=== PATIENT | male | born 1945 | race Caucasian/White ===

== ENCOUNTER → 2024-01-24 | Outpatient (CLI) | payer MEDICARE ==
--- NOTE | 2024-01-24 20:05 | MR ---
EXAMINATION TYPE: MR Prostate wo/w con DATE OF EXAM: 01/24/2024 9:53 AM COMPARISON: None. CLINICAL INDICATION: Male, 78 years old with history of C61 prostate ca; TECHNIQUE: Multi-planar, multi-sequence imaging of the pelvis is performed prior to and following the uncomplicated administration of bolus intravenous gadolinium. IV Contrast: 7 mL Gadobutrol Interpretive Criteria: PI-RADS v2.1 SERUM PSA: - = 15.220 -- = 11.870 SURGICAL PATHOLOGY: Positive biopsy 12/23/2023 involving the bilateral prostate gland. FINDINGS: Prostatic dimensions: 4.6 x 4.4 x 4.4 cm. "Bullet" Volume:58.29 (PSA density=0.26 ng/mL/mL) CENTRAL GLAND (Central and Transition Zones/CZ+TZ): Multiple bilateral, heterogenous appearing hypertrophic stromal nodules, without suspicious lesion. M edian lobe hypertrophy with protrusion into the base of the bladder. Some ill-defined high DWI signa l/ADC signal seen single slices without correlate on other sequences. (PI-RADS 2) PERIPHERAL ZONE (PZ): Bilateral linear, indistinct wedgelike areas of low ADC, and low T2 signal, No evidence of masslike a bnormality, or localized perfusional hypervascularity, to further suggest a focus of clinically signi ficant prostate cancer. Intrinsic high T1 signal within the peripheral gland predominantly in the rig ht and to lesser extent the left. Findings likely sequela of prior intervention. (PI-RADS 2) Some ill-defined high DWI signal/ADC signal seen single slices without correlate on other sequences. SEMINAL VESICLES (SV): Symmetric and unremarkable. PERIPROSTATIC TISSUES: Unremarkable. LYMPH NODES: No enlarged pelvic lymph node. REMAINING PELVIS: Bladder wall is within normal limits given distention. No abnormal free or organized intrapelvic fluid collection. No pathologic bowel dilation or mural thickening. No hernia visualized OSSEOUS STRUCTURES: No suspicious osseous abnormality. IMPRESSION: 1. No specific features for high-risk prostate cancer this patient with somewhat diffuse positive bio psy. There are sequela of prior biopsy noted present. Some ill-defined high DWI signal/ADC signal see n single slices without correlate on other sequences. Maximum PI-RADS score: 2. 2. Moderate BPH, estimated gland volume 58.29 mL. 3. No suspicious osseous lesion. No lymphadenopathy. No evidence of prostate adenocarcinoma involving the periprostatic tissues. [facility], , 01/24/2024 8:03 PM
== END | disposition home or self-care (01) ==
LOC: RADMRIMAIN 08:08
PROVIDERS: ATTEND Urology
DX: C61 Malignant neoplasm of prostate (principal); N40.0 Benign prostatic hyperplasia without lower urinary tract symptoms
CPT/HCPCS: 72197; A9585

== ENCOUNTER → 2024-01-27 | Outpatient (CLI) | payer MEDICARE ==
[2024-01-27 15:19] LABS: BUN/Creat Ratio 13.33 Ratio (12.00-20.00); Calcium 9.4 mg/dL (8.7-10.3); Carbon Dioxide 25.9 mmol/L (21.6-31.8); Chloride 99 mmol/L (96-109); Glucose 96 mg/dL (70-110); Potassium 4.7 mmol/L (3.5-5.5); Sodium 137 mmol/L (135-145)
[2024-01-27 15:28] LABS: HCT 44.9 % (39.6-50.0); HGB 14.7 g/dL (13.0-17.0); MCH 28.5 pg (27.0-32.0); MCHC 32.7 g/dL (32.0-37.0); NRBC Per 100 WBC 0 X 10*3/uL (0.00-0.01); Platelet Count 287 X 10*3/uL (140-440); RBC 5.16 X 10*6/uL (4.40-5.60); RDW 12.9 % (11.5-14.5); WBC 9.25 X 10*3/uL (4.50-10.00)
== END | disposition home or self-care (01) ==
LOC: LABWHC1 12:26
PROVIDERS: ATTEND Urology
DX: C61 Malignant neoplasm of prostate (principal)
CPT/HCPCS: 36415; 80048; 85027

== ENCOUNTER 2024-01-31 13:05 | Day surgery (SDC) | payer MEDICARE ==
--- NOTE | 2024-01-31 12:31 | P.HPIHPCON ---
History of Present Illness H&P Date: 01/31/24 Chief Complaint: Prostate cancer This is a 78-year-old male with history of [place] 7(4+3) prostate cancer he elected to proceed with radiation therapy. Option for SpaceOAR gel placement was discussed with him, risk of bleeding, infection, rectal perforation was discussed. Discussed with him the rationale of doing this was to reduce the rectal toxicity, discussed potential of developing toxicity even with SpaceOAR gel placement Consent for Procedure: I have explained the operation/procedure to the patient, including the risks, benefits, side effects, alternative therapies (including not receiving the proposed treatment or service), the likelihood of the patient achieving his/her goals, and potential recuperation problems for the procedure/sedation/analgesia, as well as any blood products, if indicated. I also explained to the patient the risks, benefits and side effects of the alternatives, as well as the risks related to not receiving the proposed procedure, care, treatment, or services. Past Medical History Past Medical History: Cancer Additional Past Medical History / Comment(s): hx. crush injury Rt. heel, hx. skin cancer bilat. shoulders and under Lt. eye, prostate cancer History of Any Multi-Drug Resistant Organisms: None Reported Past Surgical History: Orthopedic Surgery Additional Past Surgical History / Comment(s): Rt. heel repair, Bilat. CTR, Bilat. cataracts, skin cancer excised Bilat. shoulders & under Lt. eye Past Anesthesia/Blood Transfusion Reactions: No Reported Reaction Smoking Status: Never smoker Medications and Allergies Home Medications Medication Instructions Recorded Confirmed Type Bee Pollen 550 mg PO DAILY 01/27/24 01/27/24 History [place]-3/Dha/Epa/Fish Oil [Fish Oil 1 tab PO DAILY 01/27/24 01/27/24 History 1,000 mg Softgel] Allergies Allergy/AdvReac Type Severity Reaction Status Date / Time No Known Allergies Allergy Verified 01/27/24 15:43 Surgical - Exam - General no distress, no pain - Eyes normal ocular movement, no pale - ENT normal nares, normal mucosa - Respiratory normal expansion, normal respiratory effort - Abdomen Abdomen: soft, non tender Assessment and Plan Assessment: OR for SpaceOAR gel placement
[2024-01-31 14:00] VITALS: TEMP 98.1
[2024-01-31] MEDS: IV FLUID CONTINUATION 1,000 ML IV ONE (14:09)
[2024-01-31] MEDS: LACTATED RINGERS 1,000 ML IV SCH (14:10)
[2024-01-31 14:19] LABS: Basophils # (A) 0.1 k/uL (0-0.2); Basophils % (A) 1 %; Eosinophils # (A) 0.3 k/uL (0-0.7); Eosinophils % (A) 3 %; HCT 48.1 % (39.0-53.0); HGB 15.7 gm/dL (13.0-17.5); Lymphocytes % (A) 36 %; MCH 28.6 pg (25.0-35.0); MCHC 32.7 g/dL (31.0-37.0); MCV 87.6 fL (80.0-100.0); Mean Platelet Volume 7.1; Monocytes # (A) 0.8 k/uL (0-1.0); Monocytes % (A) 8 %; Neutrophils # (A) 5.6 k/uL (1.3-7.7); Neutrophils % (A) 50 %; Platelet Count 320 k/uL (150-450); RBC 5.49 m/uL (4.30-5.90); RDW 12.5 % (11.5-15.5); WBC 11.1 k/uL (3.8-10.6)
[2024-01-31 14:32] LABS: Albumin 4.6 g/dL (3.5-5.0); Bilirubin, Delta 0.1 mg/dL (0.0-0.2); Bilirubin,Unconjugated 0.9 mg/dL (0.0-1.1); Total Protein 7.3 g/dL (6.3-8.2)
[2024-01-31] MEDS: LIDOCAINE 2% (PF) 20 MG/ML 5 ML VIAL SQ ONE ×3 (15:18→15:38)
[2024-01-31] MEDS ORDERED: fentaNYL (PF) 50 MCG/ML 2 ML AMP ONE (15:22)
[2024-01-31] MEDS ORDERED: PROPOFOL 10 MG/ML 20 ML VIAL IV ONE (15:22)
[2024-01-31] MEDS ORDERED: MIDAZOLAM 2 MG/2 ML VIAL ONE (15:22)
--- NOTE | 2024-01-31 15:42 | P.OP ---
Date of Procedure: 01/31/24 Preoperative Diagnosis: Prostate cancer Postoperative Diagnosis: Same Procedure(s) Performed: SpaceOAR gel placement Implants: SpaceOAR gel Anesthesia: MAC Surgeon: Dane Miguel Estimated Blood Loss (ml): 5 Pathology: none sent Condition: stable Disposition: PACU Indications for Procedure: This is a 78-year-old male with history of [place] 7(4+3) prostate cancer he elected to proceed with radiation therapy. Option for SpaceOAR gel placement was discussed with him, risk of bleeding, infection, rectal perforation was discussed. Discussed with him the rationale of doing this was to reduce the rectal toxicity, discussed potential of developing toxicity even with SpaceOAR gel placement Description of Procedure: The patient was taken to the operating room and placed in the dorsolithotomy position, with his legs supported in Kj stirrups. The external genitalia was prepped and draped sterilely. The transrectal ultrasound probe was placed intrarectally. The prostate was imaged. The probe was then placed within the stabilizing stand. A spinal needle was advanced under ultrasonic guidance to the level of the urogenital diaphragm, and lidocaine was used to infiltrate the tissues as the needle was withdrawn. Next, the SpaceOAR needle was passed through the midline of the perineum, 1-2 cm anterior to the anal opening. The needle was slowly advanced under ultrasonic guidance until the needle tip was located within the fat plane between the prostate and rectum, at the level of the mid prostate gland. The needle was confirmed to be midline on the axial imaging. A small amount of normal saline was injected for hydrodissection. Next, the SpaceOAR components were mixed and loaded into the Y connector per protocol. The Y connector was then connected to the needle, and the components were injected slowly over a course of approximately 10 seconds. A total of 10 ml was injected. Significant distance was created between the prostate and rectum, as desired. It should be noted that at no point was there any concern of rectal perforation. The needle was withdrawn, as well as the transrectal ultrasound probe, and the procedure was terminated. The patient tolerated the procedure well and was taken to the recovery room in stable condition
[2024-01-31 16:06] VITALS: BP 129/75; PULSE 62; RESP 16
== END 2024-01-31 16:30 | disposition home or self-care (01) ==
LOC: OR 13:05
PROVIDERS: ATTEND Urology
DX: C61 Malignant neoplasm of prostate (principal); Z85.828 Personal history of other malignant neoplasm of skin; Z91.030 Bee allergy status; Z88.8 Allergy status to other drugs, medicaments and biological substances
CPT/HCPCS: 80076; 85025; 84403; 55874; C1889; J2250; J3010; J2704; J2003

== ENCOUNTER → 2024-02-02 | Outpatient (CLI) | payer MEDICARE ==
--- NOTE | 2024-02-02 17:34 | PE ---
EXAMINATION TYPE: PET CT fusion skull to thigh DATE OF EXAM: 02/02/2024 CLINICAL INDICATION:Male, 78 years old with history of C61 PROSTATE CANCER; TECHNIQUE: Following the intravenous administration of 6.6 mCi of Ga-68 Illuccix (PSMA), whole body images are performed from the skull base to the midthigh. Images are reviewed on the computer in th e coronal, axial, and sagittal planes. Reconstructed rotating images are created on independent work station and reviewed on the computer. A non-contrast CT is performed in conjunction with the PET sc an. CT DLP: 453 mGycm, Automated exposure control for dose reduction was used. COMPARISON: CT None, PET/CT None, MRI: MRI prostate 01/24/2024 FINDINGS: Mediastinal SUV mean is 1.1. Hepatic parenchyma SUV mean is 8.4. SKULL BASE AND NECK: No suspicious radiotracer activity. CHEST, MEDIASTINUM, AND HILAR REGION: No suspicious radiotracer activity. ABDOMEN AND PELVIS: Uptake within the bilateral prostate gland max SUV on the left 10.2 and on the right 5.0. Measurement s are difficult given lack of IV contrast and CT technique. No evidence for metastatic disease. MUSCULOSKELETAL STRUCTURES: No suspicious radiotracer activity. OTHER CT: * Carotid bifurcation atherosclerosis. * Coronary atherosclerosis. * Mild emphysema. * Colonic diverticulosis. * Mild cardiomegaly. * Prostatomegaly. IMPRESSION: Radiotracer uptake within the bilateral prostate gland left greater than right compatible with primar y prostate adenocarcinoma on the left and possibly an additional site on the right. No evidence for m etastatic disease at this time. [facility], , 02/02/2024 5:32 PM
== END | disposition home or self-care (01) ==
LOC: RADPETMAIN 10:01
PROVIDERS: ATTEND Radiology Radiation Oncology
DX: C61 Malignant neoplasm of prostate (principal); I51.7 Cardiomegaly; K57.30 Diverticulosis of large intestine without perforation or abscess without bleeding; J43.9 Emphysema, unspecified; I25.10 Atherosclerotic heart disease of native coronary artery without angina pectoris
CPT/HCPCS: 78815; A9596

== ENCOUNTER → 2024-03-02 | Outpatient (CLI) | payer MEDICARE ==
[2024-03-02 19:17] LABS: BUN/Creat Ratio 11.62 Ratio (12.00-20.00); Blood Urea Nitrogen 9.3 mg/dL (9.0-27.0); Carbon Dioxide 25.6 mmol/L (21.6-31.8); Chloride 94 mmol/L (96-109); Glucose 88 mg/dL (70-110); Potassium 4.7 mmol/L (3.5-5.5); Sodium 130 mmol/L (135-145)
[2024-03-02 19:18] LABS: ALT 24 U/L (10-49); AST 23 U/L (14-35); Albumin 4.2 g/dL (3.8-4.9); Albumin/Globulin Ratio 1.83 Ratio (1.60-3.17); Alkaline Phosphatase 97 U/L (41-126); Globulin 2.3 g/dL (1.6-3.3); Total Bilirubin 0.5 mg/dL (0.3-1.2); Total Protein 6.5 g/dL (6.2-8.2)
[2024-03-02 20:44] LABS: Basophils # (A) 0.06 X 10*3/uL (0.00-0.10); Basophils % (A) 0.7 %; Eosinophils # (A) 0.14 X 10*3/uL (0.04-0.35); Eosinophils % (A) 1.6 %; HGB 13.7 g/dL (13.0-17.0); Lymphocytes # (A) 3.05 X 10*3/uL (0.90-5.00); Lymphocytes % (A) 34.5 %; MCH 27.3 pg (27.0-32.0); MCHC 32.6 g/dL (32.0-37.0); MCV 83.8 FL (80.0-97.0); Mean Platelet Volume 9.7 FL (9.5-12.2); Monocytes # (A) 0.97 X 10*3/uL (0.20-1.00); NRBC Per 100 WBC 0 X 10*3/uL (0.00-0.01); Neutrophils # (A) 4.54 X 10*3/uL (1.80-7.70); Neutrophils % (A) 51.3 %; Platelet Count 260 X 10*3/uL (140-440); RBC 5.01 X 10*6/uL (4.40-5.60); RDW 11.9 % (11.5-14.5); WBC 8.84 X 10*3/uL (4.50-10.00)
== END | disposition home or self-care (01) ==
LOC: LABWHC1 13:49
PROVIDERS: ATTEND Radiology Radiation Oncology
DX: C61 Malignant neoplasm of prostate (principal)
CPT/HCPCS: 36415; 80053; 84153; 84403; 85025

== ENCOUNTER → 2024-05-18 | Outpatient (CLI) | payer MEDICARE ==
[2024-05-18 15:28] LABS: Basophils # (A) 0.02 X 10*3/uL (0.00-0.10); Basophils % (A) 0.3 %; Eosinophils # (A) 0.13 X 10*3/uL (0.04-0.35); Eosinophils % (A) 2.2 %; HCT 38.4 % (39.6-50.0); HGB 12.4 g/dL (13.0-17.0); Lymphocytes # (A) 1.76 X 10*3/uL (0.90-5.00); Lymphocytes % (A) 29.5 %; MCH 27.6 pg (27.0-32.0); MCHC 32.3 g/dL (32.0-37.0); MCV 85.5 FL (80.0-97.0); Mean Platelet Volume 9.7 FL (9.5-12.2); Monocytes # (A) 0.83 X 10*3/uL (0.20-1.00); Monocytes % (A) 13.9 %; NRBC Per 100 WBC 0 X 10*3/uL (0.00-0.01); Neutrophils # (A) 3.22 X 10*3/uL (1.80-7.70); Neutrophils % (A) 53.9 %; Platelet Count 225 X 10*3/uL (140-440); RBC 4.49 X 10*6/uL (4.40-5.60); RDW 13.1 % (11.5-14.5); WBC 5.97 X 10*3/uL (4.50-10.00)
[2024-05-18 15:46] LABS: BUN/Creat Ratio 16.67 Ratio (12.00-20.00); Chloride 99 mmol/L (96-109); Glucose 127 mg/dL (70-110); Potassium 4.5 mmol/L (3.5-5.5); Sodium 136 mmol/L (135-145)
[2024-05-18 15:47] LABS: ALT 17 U/L (10-49); AST 20 U/L (14-35); Albumin 4.1 g/dL (3.8-4.9); Albumin/Globulin Ratio 1.95 Ratio (1.60-3.17); Alkaline Phosphatase 88 U/L (41-126); Calcium 9.1 mg/dL (8.7-10.3); Globulin 2.1 g/dL (1.6-3.3); Total Bilirubin 0.6 mg/dL (0.3-1.2); Total Protein 6.2 g/dL (6.2-8.2)
[2024-05-18 16:12] LABS: Prostate Specific Antigen <0.01 ng/mL (0.000-6.500)
== END | disposition home or self-care (01) ==
LOC: LABWHC1 09:19
PROVIDERS: ATTEND Radiology Radiation Oncology
DX: C61 Malignant neoplasm of prostate (principal)
CPT/HCPCS: 36415; 80053; 84153; 84403; 85025

== ENCOUNTER → 2024-08-17 | Outpatient (CLI) | payer MEDICARE ==
[2024-08-17 15:12] LABS: Basophils # (A) 0.03 X 10*3/uL (0.00-0.10); Basophils % (A) 0.4 %; Eosinophils # (A) 0.24 X 10*3/uL (0.04-0.35); Eosinophils % (A) 3.4 %; HCT 39.7 % (39.6-50.0); HGB 12.5 g/dL (13.0-17.0); Lymphocytes # (A) 2.32 X 10*3/uL (0.90-5.00); Lymphocytes % (A) 33.1 %; MCH 27.3 pg (27.0-32.0); MCHC 31.5 g/dL (32.0-37.0); MCV 86.7 FL (80.0-97.0); Mean Platelet Volume 9.7 FL (9.5-12.2); Monocytes # (A) 0.82 X 10*3/uL (0.20-1.00); Monocytes % (A) 11.7 %; NRBC Per 100 WBC 0 X 10*3/uL (0.00-0.01); Neutrophils # (A) 3.58 X 10*3/uL (1.80-7.70); Neutrophils % (A) 51.1 %; Platelet Count 248 X 10*3/uL (140-440); RBC 4.58 X 10*6/uL (4.40-5.60); RDW 12.5 % (11.5-14.5); WBC 7.01 X 10*3/uL (4.50-10.00)
[2024-08-17 15:47] LABS: ALT 23 U/L (10-49); AST 24 U/L (14-35); Albumin 4.1 g/dL (3.8-4.9); Albumin/Globulin Ratio 1.71 Ratio (1.60-3.17); Alkaline Phosphatase 96 U/L (41-126); BUN/Creat Ratio 12.25 Ratio (12.00-20.00); Blood Urea Nitrogen 9.8 mg/dL (9.0-27.0); Calcium 8.9 mg/dL (8.7-10.3); Carbon Dioxide 24.3 mmol/L (21.6-31.8); Chloride 99 mmol/L (96-109); Globulin 2.4 g/dL (1.6-3.3); Glucose 105 mg/dL (70-110); Potassium 4.5 mmol/L (3.5-5.5); Sodium 136 mmol/L (135-145); Testosterone <10.00 ng/dL (86.98-780.10); Total Bilirubin 0.3 mg/dL (0.3-1.2); Total Protein 6.5 g/dL (6.2-8.2)
[2024-08-17 16:26] LABS: Prostate Specific Antigen <0.01 ng/mL (0.000-6.500)
== END | disposition home or self-care (01) ==
LOC: LABWHC1 09:28
PROVIDERS: ATTEND Radiology Radiation Oncology
DX: C61 Malignant neoplasm of prostate (principal)
CPT/HCPCS: 36415; 80053; 84153; 84403; 85025